=== PATIENT | male | born 1995 | race African-American/Black ===

== ENCOUNTER 2017-02-21 21:41 | Emergency (ER) | payer BC ==
[~2017-02-21] VITALS: Ht 180.3 cm; Wt 67.0 kg
[2017-02-21 21:49] VITALS: TEMP 36.9; Ht 180.3 cm; Wt 67.0 kg
[2017-02-21] MEDS ORDERED: IBUPROFEN 600 MG TAB PO STA (22:03)
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
[2017-02-21 23:00] VITALS: BP 125/68; PULSE 82; O2SAT 99
[2017-02-21] MEDS ORDERED: ACET325T96 PO (23:01)
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
== END 2017-02-21 23:01 | disposition home or self-care (01) ==
LOC: C.EDB 21:44 → C.EDD 23:01
DX: T14.8 Other injury of unspecified body region (principal); V19.9XXA Pedal cyclist (driver) (passenger) injured in unspecified traffic accident, initial encounter